=== PATIENT | male | born 1950 | race Asian ===

== ENCOUNTER 2025-02-12 04:20 | Inpatient (IN) | payer MEDICARE, MEDICAID ==
[~2025-02-12] VITALS: Ht 160 cm; Wt 54.0 kg
[2025-02-12 06:12] VITALS: PULSE 99; RESP 18; O2SAT 97
--- NOTE | 2025-02-12 06:16 | ED.PDOC ---
History of present illness HPI Comments This is a 74 year old male [place] presenting to the ED with chief complaint of ALOC/hypoglycemia. EMS reports patient that the patient's family had called 911 today due to the patient appearing to be altered this morning. EMS relays that the patient reportedly had been drinking all week very heavily. EMS states patient's blood glucose level was 24 on scene, but after being given 250mL of D10, it had gone up to 323. Patient is now alert and oriented. Patient denies any chest pain, SOB, headache, dizziness, N/V/D, abdominal pain, or fatigue. Chief Complaint: Hypoglycemia Time Seen by MD: 06:14 History of present illness: Nurses Notes, Mileage Clerk Notes, Medications, Allergies Allergies: Coded Allergies: NO KNOWN ALLERGIES (Unverified , 02/12/25) Information Source: Patient, Emergency Med Personnel Mode of Arrival: EMS Timing: Hours Duration: Since onset Prehospital treatment: Other (D10) [place]: None Past Medical History PAST MEDICAL HISTORY: Unknown Surgical History: Unknown Family History Family History: Reviewed,noncontributory to illness Social History Smoker: Non-Smoker Alcohol: Heavy Drugs: Denies Drug Use Lives In: Home Constitutional: denies: chills, diaphoresis, fatigue, fever, malaise, sweats, weakness, others EENTM: denies: blurred vision, double vision, ear bleeding, ear discharge, ear drainage, ear pain, ear ringing, eye pain, eye redness, hearing loss, mouth pain, mouth swelling, nasal discharge, nose bleeding, nose congestion, nose pain, photophobia, tearing, throat pain, throat swelling, voice changes, others Respiratory: denies: cough, hemoptysis, orthopnea, SOB at rest, shortness of breath, SOB with excertion, stridor, wheezing, others Cardiovascular: denies: chest pain, dizzy spells, diaphoresis, Dyspnea on exertion, edema, irregular heart beat, left arm pain, lightheadedness, palpitations, PND, syncope, others Gastrointestinal: denies: abdomen distended, abdominal pain, blood streaked bowels, constipated, diarrhea, dysphagia, difficulty swallowing, hematemesis, melena, nausea, poor appetite, poor fluid intake, rectal bleeding, rectal pain, vomiting, others Genitourinary: denies: burning, dysuria, flank pain, frequency, hematuria, incontinence, penile discharge, penile sore, pain, testicle pain, testicle swelling, urgency, others Neurological: denies: dizziness, fainting, headache, left sided numbness, left sided weakness, numbness, paresthesia, pre-existing deficit, right sided numbness, right sided weakness, seizure, speech problems, tingling, tremors, weakness, others Musculoskeletal: denies: back pain, gout, joint pain, joint swelling, muscle pain, muscle stiffness, neck pain, others Integumetry: denies: bruises, change in color, change in hair/nails, dryness, laceration, lesions, lumps, rash, wounds, others Allergic/Immunocompromised: denies: Difficulty Healing, Frequent Infections, Hives, Itching, others Hematologic/Lymphatic: denies: anemia, blood clots, easy bleeding, easy bruising, swollen glands, others Endocrine: denies: excessive hunger, excessive sweating, excessive thirst, excessive urination, flushing, intolerance to cold, intolerance to heat, unexplained weight gain, unexplained weight loss, others Psychiatric: denies: anxiety, bipolar disorder, depression, hopeless, panic disorder, schizophrenia, sleepless, suicidal, others Unable to Obtain due to: Altered Mental Status All Other Systems: Reviewed and Negative Physical Exam General Appearance: Moderate Distress HEENT: Pale Conjuntivae (L), Pale Conjuntivae (R), Pharynx Normal, TMs Normal Neck: Full Range of Motion, Non-Tender, Normal, Normal Inspection Respiratory: Chest Non-Tender, Lungs Clear, No Accessory Muscle Use, No Respiratory Distress, Normal Breath Sounds Cardiovascular: No Edema, No JVD, No Murmur, No Gallop, Normal Peripheral Pulse s, Regular Rate/Rhythm Breast Exam: Deferred Gastrointestinal: No Organomegaly, Non Tender, No Pulsatile Mass, Normal Bowel Sounds, Soft Genitalia: Deferred Pelvic: Deferred Rectal: Deferred Extremities: No calf tenderness, Normal capillary refill, Normal inspection, Normal range of motion, Non-tender, No pedal edema Musculoskeletal : Apperance: Normal Neurologic: Alert, labor operator II-XII nml as Tested, Motor Weakness, Normal Affect, Normal Mood, No Sensory Deficits Cerebellar Function: Normal Reflexes: Normal Skin: Dry, Normal Color, Warm Lymphatic: No Adenopathy Was a procedure done? Was a procedure done?: No Differential Diagnosis (DM) Differential Diagnosis: Gastritis, Gastroenteritis, Pancreatitis, UTI X-Ray, Labs, Meds, VS Vital Signs Date Time Temp Pulse Resp B/P (MAP) Pulse Ox O2 Delivery O2 Flow Rate FiO2 02/12/25 08:34 96 Room Air* 0 21 02/12/25 08:28 100 17 96 Room Air* 0 21 02/12/25 08:00 97.7 100 18 116/53 (74) 97 97.7 02/12/25 06:12 99 18 97 Room Air* 0 02/12/25 06:00 97.9 99 18 111/45 (67) 97 97.9 02/12/25 04:20 96.8 91 24 135/69 96 96.8 Lab Test 02/12/25 08:14 02/12/25 06:52 Range/Units POC Glucose 105 70-106 mg/dl White Blood Count 12.9 H 4.4-10.8 10^3/uL Red Blood Count 3.75 L 4.5-5.90 10^6/uL Hemoglobin 13.5 13.5-17.5 g/dL Hematocrit 38.9 L 41.0-53.0 % Mean Corpuscular Volume 103.9 H 80.0-100.0 fL Mean Corpuscular Hemoglobin 36.0 H 28.0-32.0 pg Mean Corpuscular Hemoglobin Concent 34.6 32.0-36.0 g/dL Red Cell Distribution Width 13.8 11.8-14.3 % Platelet Count 179 140-450 10^3/uL Mean Platelet Volume 8.4 6.9-10.8 fL Neutrophils (%) (Auto) 82.4 H 37.0-80.0 % Lymphocytes (%) (Auto) 12.3 10.0-50.0 % Monocytes (%) (Auto) 4.5 0.0-12.0 % Eosinophils (%) (Auto) 0.0 0.0-7.0 % Basophils (%) (Auto) 0.8 0.0-2.0 % Neutrophils # (Auto) 10.7 H 1.6-8.6 10 ^3/uL Lymphocytes # (Auto) 1.6 0.4-5.4 10 ^3/uL Monocytes # (Auto) 0.6 0-1.3 10 ^3/uL Eosinophils # (Auto) 0 0-0.8 10 ^3/uL Basophils # (Auto) 0.1 0-0.2 10 ^3/uL Nucleated Red Blood Cells 0.2 % Sodium Level 126 L 136-145 mmol/L Potassium Level 4.9 3.5-5.1 mmol/L Chloride Level 94 L 98-107 mmol/L Carbon Dioxide Level < 10 *L 20-31 mmol/L Anion Gap 22.77685 H 5-15 Blood Urea Nitrogen 16 9-23 mg/dL Creatinine 1.17 0.700-1.30 mg/dL Glomerular Filtration Rate Calc 66 >90 mL/min BUN/Creatinine Ratio 13.7 10.0-20.0 Serum Glucose 104 74-106 mg/dL Calcium Level 7.7 L 8.7-10.4 mg/dL Plasma/Serum Blood Alcohol < 3.0 <10 mg/dL Current Medications Medications (Trade) Dose Ordered Sig/Alexa Route Start Time Stop Time Status Last Admin Sodium Chloride 1,000 ml @ 1,000 mls/hr Q1H ONCE IV 02/12/25 06:15 02/12/25 07:14 DC 02/12/25 06:29 IV Hep-Lock was established The patient was given a 1 L bolus of normal saline. The patient has a an alcohol level that has negative The anion gap is elevated at 22 The CO2 level was less than 10 We are concerned about possible metabolic acidosis worsens a The CBC shows an elevated white blood cell count of 12.9 The patient is being admitted at this time Time of 1ST Reevaluation: 09:33 Reevaluation 1ST: Unchanged Patient Education/Counseling: Diagnosis, Treatment, Prognosis Family Education/Counseling: No Family Present SEPSIS Sepsis Screen Date sepsis recognized/suspect: Feb 12, 2025 Time Sepsis recognized/suspect: 419 Recent Procedure: No On Antibiotic Therapy: No Respiratory Rate >20: No Heart Rate >90: Yes Temp<36 C (96.8 F) or >38.3 C: No SBP <90 or MAP <65 mmHG: No New Acute Mental Status Change: No Is the patient on CPAP, BIPAP,: No Physician Orders Blood Glucose Assessment (02/12/25 04:56) Urinalysis (02/12/25 06:08) Heplock Iv (02/12/25 06:08) Ammonia Print Operator (02/12/25 06:08) Blood Pressure (02/12/25 06:08) Pulse Oximetry (02/12/25 06:08) Vital Signs Date Time Temp Pulse Resp B/P (MAP) Pulse Ox O2 Delivery O2 Flow Rate FiO2 02/12/25 08:34 96 Room Air* 0 21 02/12/25 08:28 100 17 96 Room Air* 0 21 02/12/25 08:00 97.7 100 18 116/53 (74) 97 97.7 02/12/25 06:12 99 18 97 Room Air* 0 21 02/12/25 06:00 97.9 99 18 111/45 (67) 97 97.9 02/12/25 04:20 96.8 91 24 135/69 96 96.8 Laboratory Tests Test 02/12/25 06:52 White Blood Count 12.9 10^3/uL (4.4-10.8) H Medications Medications Dose Ordered Sig/Alexa Route Start Time Stop Time Status Last Admin Dose Admin Sodium Chloride 1,000 ml @ 1,000 mls/hr Q1H ONCE IV 02/12/25 06:15 02/12/25 07:14 DC 02/12/25 06:29 Departure 1 Departure Time of Disposition: 09:33 Impression: Primary Impression: Acute metabolic acidosis Additional Impression: Generalized weakness Disposition: 09 ADMITTED INPATIENT Admit to: [place] Condition: Fair Critical Care Note Critical Care Time?: No Stability Stability form required: No Heart Score Heart Score: Heart Score Response (Comments) Value History N/A 0 EKG N/A 0 Age N/A 0 Risk Factors N/A 0 Troponin N/A 0 Total 0 I personally scribed for WADE PACHECO MD ([email or web address]) on 02/12/25 at 06:16. Electronically submitted by Ubaldo Carballo ([email or web address]). WADE PACHECO MD Feb 12, 2025 06:16
[2025-02-12] MEDS: SODIUM CHLORIDE 0.9% 1,000 ML IV ONE ×2 (06:29→13:45)
[2025-02-12 07:33] LABS: Hematocrit 38.9 % (41.0-53.0); Hemoglobin 13.5 g/dL (13.5-17.5); Mean Corpuscular Hemoglobin 36.0 pg (28.0-32.0); Mean Corpuscular Volume 103.9 fL (80.0-100.0); Nucleated Red Blood Cells % 0.2 %
[2025-02-12 07:51] LABS: Potassium 4.9 mmol/L (3.5-5.1)
[2025-02-12 07:52] LABS: Chloride 94 mmol/L (98-107); Sodium 126 mmol/L (136-145)
[2025-02-12 07:53] LABS: Anion Gap 22.00001 (5-15); Calcium 7.7 mg/dL (8.7-10.4)
[2025-02-12 07:54] LABS: Carbon Dioxide < 10 mmol/L (20-31)
[2025-02-12 07:58] LABS: BUN/Creatinine Ratio 13.7 (10.0-20.0); Blood Urea Nitrogen 16 mg/dL (9-23); Glucose 104 mg/dL (74-106)
[2025-02-12 08:28] VITALS: PULSE 100; RESP 17; O2SAT 96
[2025-02-12 10:26] LABS: Urine Budding Yeast OCCASIONAL /hpf (None Seen); Urine Protein, UAD 1+ (Negative)
[2025-02-12] MEDS: SODIUM CHLORIDE 0.9% 500 ML IV ONE ×2 (13:45→19:20)
[2025-02-12] MEDS ORDERED: ACETAMINOPHEN 325 MG TAB PO PRN (13:45)
[2025-02-12] MEDS ORDERED: ONDANSETRON HCL 4 MG/2 ML VIAL IV PRN (13:45)
[2025-02-12] MEDS: PANTOPRAZOLE 40 MG TAB PO ONE (14:54)
[2025-02-12 17:40] LABS: Potassium 4.1 mmol/L (3.5-5.1)
[2025-02-12 17:41] LABS: Anion Gap 17 (5-15)
[2025-02-12 17:46] LABS: BUN/Creatinine Ratio 14.2 (10.0-20.0); Blood Urea Nitrogen 16 mg/dL (9-23); Calcium 7.9 mg/dL (8.7-10.4); Carbon Dioxide 14 mmol/L (20-31); Chloride 97 mmol/L (98-107); Sodium 128 mmol/L (136-145)
[2025-02-12 17:47] LABS: Glucose 117 mg/dL (74-106)
[2025-02-12 19:15] VITALS: PULSE 69; RESP 18; O2SAT 97
--- NOTE | 2025-02-12 19:41 | DVHHP2 ---
History of Present Illness Reason for Visit: Altered mental status History of Present Illness 74-year-old male presents for evaluation of altered mental status. Patient's family called EMS due to patient becoming altered this morning. Per family patient has been drinking heavily over the past one-week. On the feel patient's blood sugar was 24. Currently he is alert oriented. No chest pain or shortness for breath. No abdominal pain, nausea or vomiting. Past Medical History Hypertension Past Surgical History None Family History Noncontributory Smoke: No ALCOHOL: heavy Drugs: None Lives: with Family Review of Systems Review of Systems Review of systems are currently negative otherwise addressed in HPI. Allergies: Coded Allergies: NO KNOWN ALLERGIES (Unverified , 02/12/25) Medications Current Medications Medications Dose Ordered Sig/Alexa Route Start Time Stop Time Status Last Admin Dose Admin Amlodipine Besylate 5 mg DAILY PO 02/13/25 10:00 Chlordiazepoxide HCl 25 mg Q6HPRN PRN PO 02/12/25 13:45 Pantoprazole Sodium 40 mg DAILY@0600 PO 02/13/25 06:00 Folic Acid 1 mg DAILY PO 02/13/25 10:00 Thiamine HCl 100 mg DAILY PO 02/13/25 10:00 Ondansetron HCl 4 mg Q4HP PRN IV 02/12/25 13:45 Acetaminophen 650 mg Q6HP PRN PO 02/12/25 13:45 Exam Vital Signs Vital Signs Date Time Temp Pulse Resp B/P (MAP) Pulse Ox O2 Delivery O2 Flow Rate FiO2 02/12/25 18:00 73 18 113/53 (73) 97 02/12/25 16:00 98.3 98.3 02/12/25 08:34 Room Air* 0 21 Exam Gen: 74-year-old male in mild distress Skin: Warm, dry, normal color and texture, no rash. HEENT: Normocephalic atraumatic, mucous membranes moist and pink. Neck: Cervical and supraclavicular nodes normal without enlargement, trachea is midline, thyroid gland is normal without masses. Pulmonary: Clear to auscultation and percussion bilaterally. Cardiac: Tachycardia Abdomen: Soft, nontender, nondistended, bowel sounds present all 4 quadrants, no guarding, no rigidity, no organomegaly. Extremities: No cyanosis, clubbing, no edema Neuro: Cranial nerves II through XII grossly intact, normal affect and speech, no focal motor deficits. Labs/Xrays Labs Test 02/12/25 16:56 02/12/25 16:05 02/12/25 08:20 02/12/25 06:52 Range/Units Sodium Level 128 L 136-145 mmol/L Potassium Level 4.1 3.5-5.1 mmol/L Chloride Level 97 L 98-107 mmol/L Carbon Dioxide Level 14 L 20-31 mmol/L Anion Gap 17 H 5-15 Blood Urea Nitrogen 16 9-23 mg/dL Creatinine 1.13 0.700-1.30 mg/dL Glomerular Filtration Rate Calc 69 >90 mL/min BUN/Creatinine Ratio 14.2 10.0-20.0 Serum Glucose 117 H 74-106 mg/dL Calcium Level 7.9 L 8.7-10.4 mg/dL POC Glucose 153 H 70-106 mg/dl Urine Color Light-yellow Yellow Urine Clarity Turbid H Clear Urine pH 5.0 5.0-9.0 Urine Specific [place] 1.011 1.001-1.035 Urine Protein 1+ H Negative Urine Ketones 2+ H Negative Urine Blood 3+ H Negative /uL Urine Nitrite Negative Negative Urine Bilirubin Negative Negative Urine Urobilinogen Normal Negative mg/dL Urine Leukocyte Esterase Negative Negative /uL Urine RBC 20 0 - 3 /hpf Urine Microscopic WBC 1 0-3 /HPF Urine Squamous Epithelial Cells None seen <5 /hpf Urine Bacteria None seen None Seen /hpf Urine Granular Casts Few 0 /lpf Urine Yeast (Budding) Occasional None Seen /hpf Urine Glucose Trace Normal mg/dL White Blood Count 12.9 H 4.4-10.8 10^3/uL Red Blood Count 3.75 L 4.5-5.90 10^6/uL Hemoglobin 13.5 13.5-17.5 g/dL Hematocrit 38.9 L 41.0-53.0 % Mean Corpuscular Volume 103.9 H 80.0-100.0 fL Mean Corpuscular Hemoglobin 36.0 H 28.0-32.0 pg Mean Corpuscular Hemoglobin Concent 34.6 32.0-36.0 g/dL Red Cell Distribution Width 13.8 11.8-14.3 % Platelet Count 179 140-450 10^3/uL Mean Platelet Volume 8.4 6.9-10.8 fL Neutrophils (%) (Auto) 82.4 H 37.0-80.0 % Lymphocytes (%) (Auto) 12.3 10.0-50.0 % Monocytes (%) (Auto) 4.5 0.0-12.0 % Eosinophils (%) (Auto) 0.0 0.0-7.0 % Basophils (%) (Auto) 0.8 0.0-2.0 % Neutrophils # (Auto) 10.7 H 1.6-8.6 10 ^3/uL Lymphocytes # (Auto) 1.6 0.4-5.4 10 ^3/uL Monocytes # (Auto) 0.6 0-1.3 10 ^3/uL Eosinophils # (Auto) 0 0-0.8 10 ^3/uL Basophils # (Auto) 0.1 0-0.2 10 ^3/uL Nucleated Red Blood Cells 0.2 % Plasma/Serum Blood Alcohol < 3.0 <10 mg/dL SEPSIS Sepsis Screen Date sepsis recognized/suspect: Feb 12, 2025 Time Sepsis recognized/suspect: 830 Recent Procedure: No On Antibiotic Therapy: No Respiratory Rate >20: No Heart Rate >90: No Temp<36 C (96.8 F) or >38.3 C: No SBP <90 or MAP <65 mmHG: No New Acute Mental Status Change: No Is the patient on CPAP, BIPAP,: No Physician Orders Admit (02/12/25 13:07) Sodium Chloride 0.9% (02/12/25 13:45) Amlodipine Tablet (Norvasc Tablet) (02/13/25 10:00) Chlordiazepoxide Hcl Capsule (Librium Ca (02/12/25 13:45) Pantoprazole Tablet (Protonix Tablet) (02/13/25 06:00) Folic Acid Tablet (02/13/25 10:00) Thiamine Tab (02/13/25 10:00) Ondansetron Hcl (Zofran) (02/12/25 13:45) Comprehensive Metabolic Panel (02/13/25 04:00) Cardiac Diet-2gna,Lofat,Lochol (02/12/25 Dinner) Condition: Stable (02/12/25 13:34) Acetaminophen Tablet (Tylenol Tablet) (02/12/25 13:45) Bedrest With Bathroom Privileg (02/12/25 13:34) Transfer Orders (02/12/25 16:20) Sodium Chloride 0.9% (02/12/25 18:45) Vital Signs Date Time Temp Pulse Resp B/P (MAP) Pulse Ox O2 Delivery O2 Flow Rate FiO2 02/12/25 18:00 73 18 113/53 (73) 97 02/12/25 16:00 98.3 79 18 119/67 (84) 97 98.3 02/12/25 14:00 87 18 107/62 (77) 97 02/12/25 12:00 98.1 97 18 122/72 (89) 97 98.1 Medications Medications Dose Ordered Sig/Alexa Route Start Time Stop Time Status Last Admin Dose Admin Pantoprazole Sodium 40 mg ONCE ONCE PO 02/12/25 13:45 02/12/25 14:11 DC 02/12/25 14:54 40 MG Sodium Chloride 500 ml @ 500 mls/hr Q1H ONCE IV 02/12/25 13:45 02/12/25 14:44 DC 02/12/25 13:45 500 MLS/HR Sodium Chloride 1,000 ml @ 125 mls/hr Q8H ONCE IV 02/12/25 13:45 02/12/25 21:44 02/12/25 13:45 125 MLS/HR Assessment/Plan Assessment/Plan Assessment Metabolic encephalopathy Hypoglycemia Lactic acidemia Possible alcohol withdrawal Plan Admit the patient to telemetry to the hospitalist Maintenance IV fluids Librium Resume home medications Continue treatment per orders. Plan discussed with: Patient My Orders Orders - ELI GODOY Procedure Category Date Status Time Admit ADMIT 02/12/25 Transmitted 13:07 Sodium Chloride 0.9% PHA 02/12/25 In Process 13:45 Amlodipine Tablet PHA 02/13/25 In Process (Norvasc Tablet) 10:00 Chlordiazepoxide Hcl PHA 02/12/25 In Process Capsule (Librium Ca 13:45 Pantoprazole Tablet PHA 02/13/25 In Process (Protonix Tablet) 06:00 Folic Acid Tablet PHA 02/13/25 In Process 10:00 Thiamine Tab PHA 02/13/25 In Process 10:00 Ondansetron Hcl PHA 02/12/25 In Process (Zofran) 13:45 Comprehensive LAB 02/13/25 Verified Metabolic Panel 04:00 Cardiac DIET 02/12/25 Transmitted Diet-2gna,Lofat,Lochol Dinner Condition: Stable ERROL 02/12/25 In Process 13:34 Acetaminophen Tablet PHA 02/12/25 In Process (Tylenol Tablet) 13:45 Bedrest With Bathroom ERROL 02/12/25 In Process Privileg 13:34 Transfer Orders XFER 02/12/25 Transmitted 16:20 Sodium Chloride 0.9% PHA 02/12/25 In Process 18:45 Date of Service: Feb 12, 2025 Billing Provider: ELI GODOY Common Visit Codes: [id number] INP/OBS CARE (HIGH) ELI GODOY Feb 12, 2025 19:41
[2025-02-12 21:00] VITALS: BP 125/72; PULSE 85; RESP 18; TEMP 98.8; O2SAT 95
[2025-02-12 21:22] VITALS: PULSE 85; RESP 18; O2SAT 95
[2025-02-12] MEDS ORDERED: BACL20TA PO (23:27)
[2025-02-12] MEDS ORDERED: AMLO1TAB22 PO (23:27)
[2025-02-12] MEDS ORDERED: OMEP20TA PO (23:27)
[2025-02-13] VITALS (8 sets, daily range): BP systolic 114–142; BP diastolic 69–83; PULSE 66–102; RESP 16–19; TEMP 97.9–98.4; O2SAT 95–98
[2025-02-13] MEDS: PANTOPRAZOLE 40 MG TAB PO SCH (05:27)
[2025-02-13 07:09] LABS: Alkaline Phosphatase 105 U/L (46-116); Anion Gap 15 (5-15); BUN/Creatinine Ratio 15.7 (10.0-20.0); Blood Urea Nitrogen 13 mg/dL (9-23); Chloride 106 mmol/L (98-107); Glucose 88 mg/dL (74-106); Potassium 3.7 mmol/L (3.5-5.1); Sodium 138 mmol/L (136-145); Total Protein 6.1 g/dL (5.7-8.2)
[2025-02-13 07:10] LABS: Albumin 3.7 g/dL (3.2-4.8); Bilirubin, Total 0.7 mg/dL (0.2-1.0)
[2025-02-13 07:11] LABS: Alanine Aminotransferase 84 U/L (7-40); Calcium 8.2 mg/dL (8.7-10.4); Carbon Dioxide 17 mmol/L (20-31)
[2025-02-13] MEDS: FOLIC ACID 1 MG TAB PO SCH (09:45)
[2025-02-13] MEDS: THIAMINE HCL 100 MG TAB PO SCH (09:45)
--- NOTE | 2025-02-13 13:40 | DVHPN2 ---
Reviewed: Care Plan, H&P, Labs, Medications, Previous Orders, Radiology Changes from previous H/P or p: No Changes Objective Vitals Vital Signs Date Time Temp Pulse Resp B/P (MAP) Pulse Ox O2 Delivery O2 Flow Rate FiO2 02/13/25 09:47 128/74 02/13/25 08:00 70 16 98 Room Air* 0 21 02/13/25 05:00 98.0 98.0 Intake/Output Intake and Output 02/13/25 07:00 Intake Total 1700 ml Output Total 600 ml Balance 1100 ml Intake Oral 200 ml IV Total 1500 ml Output Urine Total 600 ml # Bowel Movements 2 Medications Current Medications Medications Dose Ordered Sig/Alexa Route Start Time Stop Time Status Last Admin Dose Admin Amlodipine Besylate 5 mg DAILY PO 02/13/25 10:00 02/13/25 09:47 5 MG Chlordiazepoxide HCl 25 mg Q6HPRN PRN PO 02/12/25 13:45 Pantoprazole Sodium 40 mg DAILY@0600 PO 02/13/25 06:00 02/13/25 05:27 40 MG Folic Acid 1 mg DAILY PO 02/13/25 10:00 02/13/25 09:45 1 MG Thiamine HCl 100 mg DAILY PO 02/13/25 10:00 02/13/25 09:45 100 MG Ondansetron HCl 4 mg Q4HP PRN IV 02/12/25 13:45 Acetaminophen 650 mg Q6HP PRN PO 02/12/25 13:45 Laboratory Results Laboratory Tests 02/12/25 06:52 02/13/25 05:20 Chemistry Test 02/12/25 16:56 02/13/25 05:20 Calcium Level 7.9 mg/dL (8.7-10.4) L 8.2 mg/dL (8.7-10.4) L Albumin 3.7 g/dL (3.2-4.8) Total Protein 6.1 g/dL (5.7-8.2) LFT Test 02/13/25 05:20 Alanine Aminotransferase (ALT) 84 U/L (7-40) H Alkaline Phosphatase 105 U/L (46-116) Aspartate Amino Transferase (AST) 296 U/L (13-40) H Total Bilirubin 0.7 mg/dL (0.2-1.0) Urinalysis Test 02/12/25 08:20 Urine Color Light-yellow (Yellow) Urine Clarity Turbid (Clear) H Urine pH 5.0 (5.0-9.0) Urine Specific [place] 1.011 (1.001-1.035) Urine Protein 1+ (Negative) H Urine Ketones 2+ (Negative) H Urine Blood 3+ /uL (Negative) H Urine Nitrite Negative (Negative) Urine Bilirubin Negative (Negative) Urine Urobilinogen Normal mg/dL (Negative) Urine Leukocyte Esterase Negative /uL (Negative) Urine RBC 20 /hpf (0 - 3) Urine Microscopic WBC 1 /HPF (0-3) Urine Squamous Epithelial Cells None seen /hpf (<5) Urine Bacteria None seen /hpf (None Seen) Urine Granular Casts Few /lpf (0) Urine Yeast (Budding) Occasional /hpf (None Urine Glucose Trace mg/dL (Normal) Labs and/or images reviewed: Labs reviewed by me, Image(s) reviewed by me Assessment/Plan Assessment/Plan Acute Metabolic encephalopathy Acute hyponatremia sodium 126: IV fluids into Elevated liver enzymes secondary to alcohol abuse Acute dehydration: IV fluids Acute Hypoglycemia Acute Lactic acidemia Hypertension: Amlodipine Possible alcohol withdrawal : Librium Time spent 70 minutes Planning time 20 minutes Patient is full code Plan discussed with: Patient Date of Service: Feb 13, 2025 Billing Provider: AIDA SAENZ MD Common Visit Codes: [id number] CARE 30-74 MIN AIDA SAENZ MD Feb 13, 2025 13:40
--- NOTE | 2025-02-13 14:25 | DVH ---
EXAM: CT HEAD WITHOUT CONTRAST INDICATION: Acute metabolic encephalopathy TECHNIQUE: CT of the head without intravenous contrast. Radiation Dose : 1. Head: CT Dose: CTDI volume is 49.04 mGy. Dose-length product is 786.42 mGy*cm The dose indicators for CT are the volume Computed Tomography (CT) Dose Index (CTDIvol) and the Dose Length Product (DLP), and are measured in units of mGy and mGy-cm, respectively. These indicators are not patient dose, but values generated from the CT scanner acquisition factors. The report includes radiation exposure data for exposures received during this examination. COMPARISON: None FINDINGS: There is no evidence of acute intracranial hemorrhage, extra-axial collection, mass effect, midline shift, herniation or hydrocephalus. The ventricles, sulci and cisterns are age appropriate. Generalized cerebral and cerebellar atrophy. Bifrontal atrophy. The rodríguez-white differentiation is intact. Patchy periventricular and subcortical white matter hypoattenuation is nonspecific but may be related to small vessel ischemic disease. The visualized paranasal sinuses and mastoid air cells are clear. The surrounding soft tissues and osseous structures are unremarkable. IMPRESSION: No acute intracranial abnormality. Radiation optimization: All CT scans at this facility use at least one of these dose optimization techniques: automated exposure control mA and/or kV adjustment per patient size (includes targeted exams where dose is matched to clinical indication) or iterative reconstruction.
[2025-02-14 02:00] VITALS: BP 118/67; PULSE 73; RESP 18; TEMP 98.3; O2SAT 97
[2025-02-14 05:00] VITALS: BP 112/67; PULSE 65; RESP 18; TEMP 98.4; O2SAT 98
[2025-02-14 08:00] VITALS: PULSE 61; PULSE 64; RESP 16; O2SAT 96
--- NOTE | 2025-02-14 08:43 | DVHPN2 ---
Reviewed: Care Plan, H&P, Labs, Medications, Previous Orders, Radiology Changes from previous H/P or p: No Changes Objective Vitals Vital Signs Date Time Temp Pulse Resp B/P (MAP) Pulse Ox O2 Delivery O2 Flow Rate FiO2 02/14/25 05:00 98.4 65 18 112/67 (82) 98 98.4 02/13/25 20:00 Room Air* 0 21 Intake/Output Intake and Output 02/14/25 07:00 Intake Total 1250 ml Output Total 650 ml Balance 600 ml Intake Oral 1250 ml Output Urine Total 650 ml # Voids 4 # Bowel Movements 1 Medications Current Medications Medications Dose Ordered Sig/Alexa Route Start Time Stop Time Status Last Admin Dose Admin Amlodipine Besylate 5 mg DAILY PO 02/13/25 10:00 02/13/25 09:47 5 MG Chlordiazepoxide HCl 25 mg Q6HPRN PRN PO 02/12/25 13:45 Pantoprazole Sodium 40 mg DAILY@0600 PO 02/13/25 06:00 02/14/25 05:28 40 MG Folic Acid 1 mg DAILY PO 02/13/25 10:00 02/13/25 09:45 1 MG Thiamine HCl 100 mg DAILY PO 02/13/25 10:00 02/13/25 09:45 100 MG Ondansetron HCl 4 mg Q4HP PRN IV 02/12/25 13:45 Acetaminophen 650 mg Q6HP PRN PO 02/12/25 13:45 Laboratory Results Laboratory Tests 02/12/25 06:52 02/13/25 05:20 Urinalysis Test 02/12/25 08:20 Urine Color Light-yellow (Yellow) Urine Clarity Turbid (Clear) H Urine pH 5.0 (5.0-9.0) Urine Specific [place] 1.011 (1.001-1.035) Urine Protein 1+ (Negative) H Urine Ketones 2+ (Negative) H Urine Blood 3+ /uL (Negative) H Urine Nitrite Negative (Negative) Urine Bilirubin Negative (Negative) Urine Urobilinogen Normal mg/dL (Negative) Urine Leukocyte Esterase Negative /uL (Negative) Urine RBC 20 /hpf (0 - 3) Urine Microscopic WBC 1 /HPF (0-3) Urine Squamous Epithelial Cells None seen /hpf (<5) Urine Bacteria None seen /hpf (None Seen) Urine Granular Casts Few /lpf (0) Urine Yeast (Budding) Occasional /hpf (None Urine Glucose Trace mg/dL (Normal) Labs and/or images reviewed: Labs reviewed by me, Image(s) reviewed by me Assessment/Plan Assessment/Plan Acute Metabolic encephalopathy Acute hyponatremia sodium 126: IV fluids Elevated liver enzymes secondary to alcohol abuse Acute dehydration: IV fluids Acute Hypoglycemia Acute Lactic acidemia Hypertension: Amlodipine Possible alcohol withdrawal : Librium CT head negative Time spent 50 minutes Patient wants to be discharged today Alert awake oriented times x 3 Patient is full code Plan discussed with: Patient My Orders Orders - AIDA SAENZ MD Procedure Category Date Status Time Head Without Contrast CT 02/13/25 Resulted 13:38 Date of Service: Feb 14, 2025 Billing Provider: AIDA SAENZ MD Common Visit Codes: [id number] INP/OBS CARE(HIGH) AIDA SAENZ MD Feb 14, 2025 08:43
[2025-02-14] MEDS ORDERED: CHL25C PO (08:46)
[2025-02-14] MEDS ORDERED: FOLI-119 PO (08:46)
[2025-02-14] MEDS ORDERED: THIA100T13 PO (08:46)
[2025-02-14 09:01] VITALS: BP 118/71; PULSE 64; RESP 16; TEMP 98.5; O2SAT 96
--- NOTE | 2025-02-14 09:17 | DVHDS2 ---
Discharge Summary Date of Admission Feb 12, 2025 at 13:07 Date of Discharge: Feb 14, 2025 Admitting Diagnosis Generalized weakness Wounds: None Labs/Diagnostic Data: Laboratory Results Test 02/13/25 05:20 02/12/25 16:05 02/12/25 08:20 02/12/25 06:52 Sodium Level 138 mmol/L (136-145) Potassium Level 3.7 mmol/L (3.5-5.1) Chloride Level 106 mmol/L (98-107) Carbon Dioxide Level 17 mmol/L (20-31) Anion Gap 15 (5-15) Blood Urea Nitrogen 13 mg/dL (9-23) Creatinine 0.83 mg/dL (0.700-1.30) Glomerular Filtration Rate Calc 92 mL/min (>90) BUN/Creatinine Ratio 15.7 (10.0-20.0) Serum Glucose 88 mg/dL (74-106) Calcium Level 8.2 mg/dL (8.7-10.4) Total Bilirubin 0.7 mg/dL (0.2-1.0) Aspartate Amino Transferase (AST) 296 U/L (13-40) Alanine Aminotransferase (ALT) 84 U/L (7-40) Alkaline Phosphatase 105 U/L (46-116) Total Protein 6.1 g/dL (5.7-8.2) Albumin 3.7 g/dL (3.2-4.8) POC Glucose 153 mg/dl (70-106) Urine Color Light-yellow (Yellow) Urine Clarity Turbid (Clear) Urine pH 5.0 (5.0-9.0) Urine Specific [place] 1.011 (1.001-1.035) Urine Protein 1+ (Negative) Urine Ketones 2+ (Negative) Urine Blood 3+ /uL (Negative) Urine Nitrite Negative (Negative) Urine Bilirubin Negative (Negative) Urine Urobilinogen Normal mg/dL (Negative) Urine Leukocyte Esterase Negative /uL (Negative) Urine RBC 20 /hpf (0 - 3) Urine Microscopic WBC 1 /HPF (0-3) Urine Squamous Epithelial Cells None seen /hpf (<5) Urine Bacteria None seen /hpf (None Seen) Urine Granular Casts Few /lpf (0) Urine Yeast (Budding) Occasional /hpf (None Urine Glucose Trace mg/dL (Normal) White Blood Count 12.9 10^3/uL (4.4-10.8) Red Blood Count 3.75 10^6/uL (4.5-5.90) Hemoglobin 13.5 g/dL (13.5-17.5) Hematocrit 38.9 % (41.0-53.0) Mean Corpuscular Volume 103.9 fL (80.0-100.0) Mean Corpuscular Hemoglobin 36.0 pg (28.0-32.0) Mean Corpuscular Hemoglobin Concent 34.6 g/dL (32.0-36.0) Red Cell Distribution Width 13.8 % (11.8-14.3) Platelet Count 179 10^3/uL (140-450) Mean Platelet Volume 8.4 fL (6.9-10.8) Neutrophils (%) (Auto) 82.4 % (37.0-80.0) Lymphocytes (%) (Auto) 12.3 % (10.0-50.0) Monocytes (%) (Auto) 4.5 % (0.0-12.0) Eosinophils (%) (Auto) 0.0 % (0.0-7.0) Basophils (%) (Auto) 0.8 % (0.0-2.0) Neutrophils # (Auto) 10.7 10 ^3/uL (1.6-8.6) Lymphocytes # (Auto) 1.6 10 ^3/uL (0.4-5.4) Monocytes # (Auto) 0.6 10 ^3/uL (0-1.3) Eosinophils # (Auto) 0 10 ^3/uL (0-0.8) Basophils # (Auto) 0.1 10 ^3/uL (0-0.2) Nucleated Red Blood Cells 0.2 % Plasma/Serum Blood Alcohol < 3.0 mg/dL (<10) Other Laboratory Tests 02/13/25 05:20 02/12/25 06:52 Brief Hx & Hospital Course: 74-year-old male with a history of hypotension chronic alcohol abuse came in for generalized weakness and altered mental status found to have low sodium of 126 given IV fluids improved. Patient was given thiamine folic acid and Librium for alcohol withdrawal treated with the amlodipine for high blood pressure CT head negative elevated liver enzymes secondary to alcohol abuse hepatitis panel pending patient wants to go home and requesting to be discharged today. Is alert awake oriented x3 and ambulating with stable vital signs discharged home. Advised to stop drinking alcohol and follow up with the primary Dr. Consults/Reason for consult None Operations or Procedures CT head Condition at Discharge: Fair Final Diagnosis/Problems List Acute Metabolic encephalopathy Acute hyponatremia sodium 126: IV fluids Elevated liver enzymes secondary to alcohol abuse Acute dehydration: IV fluids Acute Hypoglycemia Acute Lactic acidemia Hypertension: Amlodipine Possible alcohol withdrawal : Librium CT head negative Discharge Disposition: Home Discharge Instruct/Medications Diet: Cardiac 2g Na,low cholest Activity: Light activity Follow Up/Referral: Stop drinking alcohol Resume all previous home medications Follow up with the primary Dr Medications: Thiamine Folic acid Librium Transmitted to pharmacy Scheduled Amlodipine Besylate (Amlodipine Besylate), 1 TAB PO DAILY, (Reported) Baclofen (Baclofen), 1 TAB PO TID, (Reported) Chlordiazepoxide Hcl (Librium), 25 MG PO TID Folic Acid (Folic Acid), 1 MG PO DAILY Omeprazole (Gnp Omeprazole), 1 TAB PO DAILY, (Reported) Thiamine HCl (Thiamine Hydrochloride), 100 MG PO DAILY 39 (Time taken for discharge summary 39 minutes) Discharge Statement: "Patient was advised to return to the ER or call 911 if any headaches, dizziness, shortness of breath, chest pain, abdominal pain, bleeding, fevers, or worsening of medical condition. Patient was counseled about treatment plan, medications, possible side effects, patientverbalized understanding. All questions were answered to the best of my ability. This discharge took greater then 30 minutes in planning, reviewing documentation, counseling the patient, and discussing with other team members." ASSESSMENT ASSESSMENT Hospital Course Improved Assessment Acute Metabolic encephalopathy Acute hyponatremia sodium 126: IV fluids Elevated liver enzymes secondary to alcohol abuse Acute dehydration: IV fluids Acute Hypoglycemia Acute Lactic acidemia Hypertension: Amlodipine Possible alcohol withdrawal : Librium CT head negative Date of Service: Feb 14, 2025 Billing Provider: AIDA SAENZ MD Common Visit Codes: 23919-RYO/OBS DISCH DAY >30min AIDA SAENZ MD Feb 14, 2025 09:17
[2025-02-16 13:48] LABS: Hepatitis A Total Antibody Positive (Negative); Hepatitis B Surface Antigen Negative (Negative); Hepatitis C Antibody Negative (Negative)
== END 2025-02-14 11:28 | disposition home or self-care (01) | DRG 640 ==
LOC: EDBD 04:20 → ER 04:20 → OVERFLOW 13:07 → TELE-CENTR 13:08 → CENTRAL 20:45 → TELE-CENTR 02-13 02:05
PROVIDERS: ADMIT Family Medicine; ATTEND Family Medicine
DX: E86.0 Dehydration (principal); G93.41 Metabolic encephalopathy; F10.239 Alcohol dependence with withdrawal, unspecified; I10 Essential (primary) hypertension; E87.1 Hypo-osmolality and hyponatremia; E87.21 Acute metabolic acidosis; E16.2 Hypoglycemia, unspecified; R74.8 Abnormal levels of other serum enzymes; Y90.0 Blood alcohol level of less than 20 mg/100 ml
CPT/HCPCS: 36415; 70450; 80048; 80053; 80320; 81001; 82962; 85025; 86704; 86706; 86708; 86803; 87340; 96360; G0378